=== PATIENT | female | born 1965 | race Caucasian/White ===

== ENCOUNTER 2018-09-18 17:05 | Emergency (ER) | payer MEDICARE, OTHER ==
[2018-09-18] MEDS ORDERED: Adacel (T-DAP) 0.5 ML SYRINGE ONE (17:53)
--- NOTE | 2018-09-18 18:04 | RAD ---
XR Hand Rt 3 View STANDARD History: Injury. Laceration. Comparison: None. Findings: There is a cutaneous emphysema between the second and third metacarpal heads. No acute frac ture is appreciated. No radiopaque foreign object is appreciated. Impression: Subcutaneous emphysema without fracture, malalignment, or radiopaque foreign object.
[2018-09-18] MEDS ORDERED: Bacitracin Zinc 1 Packet ONE (18:14)
[2018-09-18] MEDS ORDERED: HYDROcodone/Acetaminophen 10/325 mg Tablet ONE (18:22)
== END 2018-09-18 18:29 | disposition home or self-care (01) ==
LOC: SCSER 17:05
DX: S61.411A Laceration without foreign body of right hand, initial encounter (principal); K02.9 Dental caries, unspecified; Z86.73 Personal history of transient ischemic attack (TIA), and cerebral infarction without residual deficits; Z79.899 Other long term (current) drug therapy; W22.8XXA Striking against or struck by other objects, initial encounter; Y99.0 Civilian activity done for income or pay
CPT/HCPCS: 90471; 90715